=== PATIENT | female | born 1975 | race American Indian/Alaskan Native ===

== ENCOUNTER 2017-12-20 16:15 | Emergency (ER) | payer SELFPAY ==
[2017-12-20 16:40] VITALS: BP 111/55
[2017-12-20 17:06] LABS: Hematocrit 37.7 % (30.3-42.9); Hemoglobin 12.9 gm/dl (10.1-14.3); Mean Corpuscular HGB Conc 34 % (30-34); Mean Corpuscular Hemoglobin 28 pg (28-32); Mean Corpuscular Volume 81 fl (79-97); Platelet Count 268 K/mm3 (140-440); Red Blood Count 4.68 M/mm3 (3.65-5.03)
[2017-12-20 17:17] LABS: BUN/Creatinine Ratio 12; Blood Urea Nitrogen 12 mg/dL (7-17); Calcium 9.2 mg/dL (8.4-10.2); Hemolysis Index 20
[2017-12-20 17:51] LABS: Bacteria,Urine 2+ /HPF (Negative); Bilirubin,Urine NEG (Negative); Blood,Urine LG (Negative); Color,Urine Yellow (Yellow); Mucus,Urine 2+ /HPF; Urobilinogen,Urine < 2.0 mg/dL (<2.0); WBC,Urine > 182.0 /HPF (0.0-6.0)
[2017-12-20] MEDS ORDERED: NACL 0.9% 1000 ML 1,000 ML IV ONE (20:44)
[2017-12-20] MEDS ORDERED: TORADOL IV ONE (20:44)
[2017-12-20] MEDS ORDERED: ZOFRAN IV ONE (20:44)
[2017-12-20] MEDS ORDERED: ROCEPHIN/NS 1 GM/50 ML 1 GM/50 ML BAG IV ONE (20:44)
[2017-12-20] MEDS ORDERED: ROCEPHIN IM ONE (21:05)
--- NOTE | 2017-12-20 21:48 | Emergency Department Report ---
ED Abdominal Pain HPI - General Chief Complaint: Abdominal Pain Stated Complaint: LOWER RT BACK PAIN Time Seen by Provider: 12/20/17 20:43 Source: patient Mode of arrival: Ambulatory Limitations: No Limitations - History of Present Illness Initial Comments: Patient for your primary female who presents for right flank pain radiating to some pubic area times one week . notes stronger urine than usual denies urgency frequency or dysuria no hematuria no history of renal stones secondary complaint is constipation there is no nausea vomiting no fever chills symptoms are relieved by nothing and his are exacerbated by patient is tolerating by mouth intake without problems MD Complaint: abdominal pain, flank pain Onset/Timin -: week(s) Location: suprapubic, R flank Radiation: none Migration to: suprapubic Severity: moderate Severity scale (0 -10): 3 Quality: aching Consistency: intermittent Improves With: nothing Worsens With: movement Associated Symptoms: other (urinary frequency and foul smell ). denies: nausea , vomiting, diarrhea, fever, chills, hematemesis, hematochezia, melena, hematuria, anorexia, syncope - Related Data LMP Date: 12/06/17 Previous Rx's Medication Instructions Recorded Last Taken Type Ciprofloxacin HCl [Cipro] 500 mg PO BID #20 tablet 12/20/17 Unknown Rx Allergies Allergy/AdvReac Type Severity Reaction Status Date / Time No Known Allergies Allergy Unverified 12/20/17 16:40 ED Review of Systems ROS: Stated complaint: LOWER RT BACK PAIN Other details as noted in HPI Constitutional: denies: chills, fever Eyes: denies: eye pain, eye discharge, vision change ENT: denies: ear pain, throat pain Respiratory: denies: cough, shortness of breath, wheezing Cardiovascular: denies: chest pain, palpitations Endocrine: no symptoms reported Gastrointestinal: abdominal pain, constipation. denies: nausea, vomiting, diarrhea, hematemesis, melena, hematochezia Genitourinary: denies: urgency, dysuria, hematuria, discharge, abnormal menses, dyspareunia Musculoskeletal: denies: back pain, joint swelling, arthralgia Skin: denies: rash, lesions Neurological: denies: headache, weakness, paresthesias Psychiatric: denies: anxiety, depression Hematological/Lymphatic: denies: easy bleeding, easy bruising ED Past Medical Hx - Social History Smoking Status: Never Smoker Substance Use Type: None - Medications Home Medications: Home Medications Medication Instructions Recorded Confirmed Last Taken Type Ciprofloxacin HCl [Cipro] 500 mg PO BID #20 tablet 12/20/17 Unknown Rx ED Physical Exam - General Limitations: No Limitations General appearance: alert, in no apparent distress - Head Head exam: Present: atraumatic, normocephalic - Eye Eye exam: Present: normal appearance - ENT ENT exam: Present: mucous membranes moist - Neck Neck exam: Present: normal inspection - Respiratory Respiratory exam: Present: normal lung sounds bilaterally. Absent: respiratory distress - Cardiovascular Cardiovascular Exam: Present: regular rate, normal rhythm. Absent: systolic murmur, diastolic murmur, rubs, gallop - GI/Abdominal GI/Abdominal exam: Present: soft, normal bowel sounds. Absent: distended, tenderness, guarding, rebound, rigid, bruit, hernia - Expanded GI/Abdominal Exam Expanded GI/Abdominal exam: Absent: psoas sign, obturator sign, heel tap sign, Valdivia's sign, Rovsing's sign, tenderness at Mcburney's Point, ascites - Rectal Rectal exam: Present: deferred - External exam: Present: other (exam deferred) - Extremities Exam Extremities exam: Present: normal inspection - Back Exam Back exam: Present: normal inspection - Neurological Exam Neurological exam: Present: alert, oriented X3 - Psychiatric Psychiatric exam: Present: normal affect, normal mood - Skin Skin exam: Present: warm, dry, intact, normal color. Absent: rash ED Course Vital Signs 12/20/17 16:33 Temperature 98.2 F Pulse Rate 80 Respiratory 16 Rate Blood Pressure 111/55 O2 Sat by Pulse 100 Oximetry ED Medical Decision Making - Lab Data Result diagrams: 12/20/17 16:47 12/20/17 16:47 Laboratory Tests 12/20/17 12/20/17 12/20/17 16:47 16:47 17:09 WBC 16.0 H RBC 4.68 Hgb 12.9 Hct 37.7 MCV 81 MCH 28 MCHC 34 RDW 15.0 Plt Count 268 Sodium 136 L Potassium 3.9 Chloride 97.0 L Carbon Dioxide 25 Anion Gap 18 BUN 12 Creatinine 1.0 Estimated GFR > 60 BUN/Creatinine Ratio 12 Glucose 108 H Calcium 9.2 Urine Color Yellow Urine Turbidity Hazy Urine pH 5.0 Ur Specific [place] 1.017 Urine Protein 100 mg/dl Urine Glucose (UA) Neg Urine Ketones Neg Urine Blood Lg Urine Nitrite Pos Urine Bilirubin Neg Urine Urobilinogen < 2.0 Ur Leukocyte Esterase Lg Urine WBC (Auto) > 182.0 H Urine RBC (Auto) 67.0 U Epithel Cells (Auto) 4.0 Urine Bacteria (Auto) 2+ Urine WBC Clumps 2+ Urine Mucus 2+ Mouth were - Radiology Data Radiology results: report reviewed, image reviewed CT abdomen and pelvis demonstrates a large liver mass probably benign spinal spleen mass small spleen mass and lumbar scoliosis - Medical Decision Making This is a moderate UTI with out pyelonephritis no hydronephrosis CT abdomen and pelvis bowel positive for liver and spleen mass is no fever no chills no nausea vomiting patient is tolerating by mouth intake and by mouth hydration will follow up with GI for liver and spleen masses discussed findings and treatment plan outpatient patient verbalizes agreement and understanding of discharge plan be DC'd home in stable condition at this time pain is now 1/10 patient without difficulty at this time Critical care attestation.: If time is entered above; I have spent that time in minutes in the direct care of this critically ill patient, excluding procedure time. ED Disposition Clinical Impression: Liver mass, Splenic mass UTI (urinary tract infection) Qualifiers: Urinary tract infection type: acute cystitis Hematuria presence: without hematuria Qualified Code(s): N30.00 - Acute cystitis without hematuria Disposition: DC-01 TO HOME OR SELFCARE Is pt being admited?: No Does the pt Need Aspirin: No Condition: Stable Instructions: Abdominal Pain (ED), Urinary Tract Infection in Women (ED) Prescriptions: Ciprofloxacin HCl [Cipro] 500 mg PO BID #20 tablet Referrals: ZOLTAN ALMONTE MD [Staff Physician] - 3-5 Days [facility] [Outside] - 3-5 Days Forms: Work/School Release Form(ED) Time of Disposition: 22:22
--- NOTE | 2017-12-20 21:52 | Cat Scan Report ---
FINAL REPORT PROCEDURE: CT abdomen and pelvis without contrast. TECHNIQUE: Computerized axial tomography of the abdomen and pelvis was performed without intravenous contrast. This study is performed without intravascular contrast material and its sensitivity for abdominal and pelvic pathology, including neoplasms, inflammation, abscess, free fluid, thrombosis, arterial dissection and infarction, is reduced compared with a contrast enhanced study. HISTORY: Flank pain. COMPARISON: No prior studies are available for comparison. FINDINGS: The lung bases are clear. There are no pleural effusions. The heart size is normal. There is a large rounded mass of low attenuation in the right lobe of the liver. This measures 9.1 centimeters x 9.7 centimeters in cross-section. The attenuation is higher than that of simple fluid. This could represent a cyst or a very large cavernous hemangioma. Further evaluation with an ultrasound study is suggested. The pancreas is grossly normal. There is a rounded mass of low attenuation within the spleen. This measures 2.1 centimeters x 1.9 centimeters in cross-section. This could also represent a cyst. The exact etiology is uncertain. The adrenal glands are not enlarged. The gallbladder is present. Both kidneys appear normal in size and configuration. The abdominal aorta has a normal caliber. There is no retroperitoneal adenopathy. The unopacified gastrointestinal tract is unremarkable. The appendix is not identified. The bladder, uterus and adnexal regions are unremarkable. The regional skeleton appears intact. There is a mild lumbar scoliosis. IMPRESSION: Large liver mass which is probably benign. Further evaluation with ultrasound recommended. Smaller mass within the spleen. Mild lumbar scoliosis.
[2017-12-20 23:39] LABS: HCG Qualitative,Urine Negative (Negative)
== END 2017-12-20 22:30 | disposition home or self-care (01) ==
LOC: ED 16:15
DX: N30.00 Acute cystitis without hematuria (principal); R16.0 Hepatomegaly, not elsewhere classified; R16.1 Splenomegaly, not elsewhere classified
CPT/HCPCS: 36415; 74176; 80048; 81001; 81025; 85027; 96374; 96375; 99284; J0696; J1885; J2405; J7030; 96365